=== PATIENT | female | born 1965 | race Caucasian/White ===

== ENCOUNTER → 2020-06-06 | Outpatient (CLI) | payer OTHER ==
--- NOTE | 2020-06-06 10:05 | Diagnostic Imaging Report ---
PROCEDURE: MRI left joint lower extremity without contrast. TECHNIQUE: Multiplanar, multisequence non contrast-enhanced MRI of the left lower extremity was accomplished. INDICATION: Twisted knee with pain. History of previous knee surgery 2 years ago. FINDINGS: 1. There has been partial medial meniscectomy. There is irregularity of the articulating surface of the medial femoral condyle with thickening of cortical bone consistent with insufficiency fracture along the weightbearing surface of femoral condyle. No evidence of new meniscal tear. Lateral meniscus appears normal with smooth articulating surfaces with good preservation of chondral cartilage in the lateral compartment. The patellofemoral joint shows good alignment with normal trochlea. There is loss of articulating cartilage along the lateral patella and adjacent femoral condyle of approximately 50% thickness. The cruciate and collateral ligaments are intact. Quadriceps tendon and patellar ligament appear intact. There is moderate joint effusion. No evidence of popliteal cyst. The surrounding muscles and tendons appear intact. IMPRESSION: 1. 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 Findings of partial meniscectomy medially. 2. Moderate loss of articulating cartilage along the lateral patellofemoral joint. 3. Moderate joint effusion. Dictated by: Dictated on workstation # [id number]
== END ==
LOC: RAD 08:45
PROVIDERS: ATTEND Nurse Practitioner Family
DX: S83.8X2A Sprain of other specified parts of left knee, initial encounter (principal); W01.10XA Fall on same level from slipping, tripping and stumbling with subsequent striking against unspecified object, initial encounter; Z04.2 Encounter for examination and observation following work accident; Z02.89 Encounter for other administrative examinations; E03.8 Other specified hypothyroidism; M17.12 Unilateral primary osteoarthritis, left knee; M25.462 Effusion, left knee
CPT/HCPCS: 73721